=== PATIENT | female | born 1990 | race Caucasian/White ===

== ENCOUNTER → 2017-04-27 | Outpatient (CLI) | payer BC ==
[~2017-04-27] MED LIST: PNV11TAB PO
[2017-04-27 15:52] LABS: BASOPHILS % 0.2 % (0.0-2.0); EOSINOPHILS # 0.1 10^3/ul (0.0-0.5); EOSINOPHILS % 1.4 % (0.0-7.0); HEMOGLOBIN 11.5 g/dl (12.0-16.0); LYMPHOCYTES # 2.2 10^3/ul (0.8-2.9); LYMPHOCYTES % 24.3 % (15.0-51.0); MEAN CORPUSCULAR HEMOGLOBIN 30.5 pg (29.0-33.0); MEAN CORPUSCULAR HGB CONC 34.8 g/dl (32.0-37.0); MEAN CORPUSCULAR VOLUME 87.5 fl (82.0-101.0); MEAN PLATELET VOLUME 11.1 fl (7.4-10.4); MONOCYTE # 0.6 10^3/ul (0.3-0.9); MONOCYTES % 6.8 % (0.0-11.0); NEUTROPHILS % 66.9 % (39.0-77.0); PLATELET COUNT 279 10^3/UL (140-415); RED BLOOD COUNT 3.77 10^6/ul (4.20-5.40)
[2017-04-27 15:57] LABS: ADD UMIC NO; UR ASCORBIC ACID NEGATIVE (NEGATIVE); UR BILIRUBIN (Dip) NEGATIVE (NEGATIVE); UR BLOOD (Dip) NEGATIVE (NEGATIVE); UR CLARITY CLEAR (CLEAR); UR COLOR YELLOW (YELLOW); UR GLUCOSE (Dip) NEGATIVE (NEGATIVE); UR KETONES (Dip) NEGATIVE (NEGATIVE); UR LEUKOCYTE ESTERASE (Dip) NEGATIVE Leu/ul (NEGATIVE); UR NITRITE (Dip) NEGATIVE (NEGATIVE); UR SPECIFIC GRAVITY (Dip) 1.025 (1.003-1.030); UR TOTAL PROTEIN (Dip) NEGATIVE (NEGATIVE); UR UROBILINOGEN (Dip) NEGATIVE (NEGATIVE)
[2017-04-27 16:07] LABS: INR 0.92; PROTIME 12.4 Sec (12.2-14.2)
[2017-04-27 16:10] LABS: ALBUMIN 3.6 g/dl (3.3-4.9); ALBUMIN/GLOBULIN RATIO 0.94; BILIRUBIN,INDIRECT 0.2 mg/dl (0-1.1); BILIRUBIN,TOTAL 0.2 mg/dl (0.2-1.3); CALCIUM 8.7 mg/dl (8.4-10.2); CREATININE 0.66 mg/dl (0.44-1.00); POTASSIUM 4.2 mmol/L (3.5-5.1); TOTAL PROTEIN 7.4 g/dl (6.1-8.1)
== END | disposition home or self-care (01) ==
LOC: LAB 15:20
PROVIDERS: ATTEND Specialist
DX: Z01.812 Encounter for preprocedural laboratory examination (principal); O34.29 Maternal care due to uterine scar from other previous surgery
CPT/HCPCS: 80053; 81003; 85025; 85610; 85730; 86592; 86850; 86900; 86901

== ENCOUNTER 2017-04-29 05:25 | Inpatient (IN) | payer BC ==
[~2017-04-29] VITALS: Ht 165.1 cm; Wt 104.0 kg
[2017-04-29] MEDS ORDERED: LACTATED RINGER'S 1,000 ML IV SCH (06:12)
[2017-04-29 06:15] VITALS: Ht 165.1 cm; Wt 104.0 kg
[2017-04-29] MEDS ORDERED: CEFAZOLIN 2 GM/50 ML (PMX) 50 ML IV SCH ×2 (06:30→11:30)
[2017-04-29] MEDS ORDERED: CARBOPROST 250 MCG INJ IM PRN ×2 (06:30→11:30)
[2017-04-29] MEDS ORDERED: METHYLERGONOVINE 0.2 MG INJ IM PRN ×2 (06:30→11:30)
[2017-04-29] MEDS ORDERED: MISOPROSTOL 200 MCG TAB PR PRN ×2 (06:30→11:30)
[2017-04-29] MEDS ORDERED: OXYTOCIN 30 UNITS/LR 500 ML IV PRN ×2 (06:30→11:30)
[2017-04-29] MEDS ORDERED: OXYTOCIN 30 UNITS/LR 500 ML IV SCH (06:30)
--- NOTE | 2017-04-29 06:52 | PREOPHP ---
DATE OF ADMISSION: 04/29/2017 She is to be admitted tomorrow, 04/29/2017, for a repeat at term. HISTORY OF PRESENT ILLNESS: This is a 26-year-old female, 3, para 2, with an EDC of 05/06/2017, confirmed by early and serial ultrasounds done at the [facility] group, who is admitted for elective repeat section at 39 weeks' gestation. She has had a totally uncomplicated course. Her care started at 27 weeks on 02/05/2017. The procedure itself, which she is familiar with was, however, reviewed in the office in detail. The alternatives to it, the benefits, the risks, and possible complications like infection, hemorrhage and pelvic organ injury during the procedure, as well as postoperative complications were discussed at great length. She was allowed to ask questions, all her questions were answered to her satisfaction, and she signed the appropriate surgical informed consent. PAST MEDICAL HISTORY: The patient denies any medical problems including diabetes, hypertension, cardiac disease, liver disease, renal disease and neurological problems. ALLERGIES: NO KNOWN ALLERGIES. MEDICATIONS: She takes only vitamins on a regular basis. OBSTETRICAL HISTORY: This is this lady's 3rd , the 2 previous ones were delivered by section in 2007 and 2005. FAMILY HISTORY: Noncontributory. REVIEW OF SYSTEMS: A 12-point review of systems is noncontributory. PHYSICAL EXAMINATION: GENERAL: Well-developed and nourished, in no distress, alert, oriented x3 with a height 5 feet 5 inches and a weight of 232 pounds. VITAL SIGNS: Shows the temperature to be 98, blood pressure is 120/77, respirations are 16 per minute, the pulse is 80 per minute, regular. HEENT: Within normal limits. The pupils are PERRLA. NECK: Supple. The thyroid is not palpable. There is no lymphadenopathy. BREASTS: Show no masses or lumps. Nipples are normal. LUNGS: Clear to percussion and auscultation. HEART: Normal sinus rhythm without a murmur. ABDOMEN: Soft, obese. Uterus enlarged up to 36 cm above the pubic bone, single baby, longitudinal lie, cephalic presentation. heart is category 1. PELVIC: Normal external genitalia. Cervix is long and closed. Membranes are intact. EXTREMITIES: Within normal limits. NEUROLOGIC: Also normal. IMPRESSION: 1. Thirty-nine weeks' gestation. 2. Previous section x2. 3. Obesity. PLAN: The patient is to be delivered by repeat . Dictated By: PEEWEE DOWD/YOLANDA Conf#: [id number] DID#: [id number] MTDD
[2017-04-29] MEDS ORDERED: morphine SULFATE/PF (10 MG/10 ML) INJ ONE (07:40)
[2017-04-29] MEDS ORDERED: FENTAnyl 50 MCG/ML VIAL ONE (07:40)
[2017-04-29] MEDS ORDERED: PHENYLephrine (100 MCG/ML) 5ML SYG ONE ×2 (07:50→08:04)
[2017-04-29] MEDS ORDERED: ZOLPIDEM 5 MG TAB PO PRN (08:00)
[2017-04-29] MEDS ORDERED: NALOXONE (0.4 MG/ML) INJ IV PRN (08:00)
[2017-04-29] MEDS ORDERED: TRIMETHOBENZAMIDE 100 MG/ML VIAL IM PRN (08:00)
[2017-04-29] MEDS ORDERED: ONDANSETRON 4 MG INJ IV PRN (08:00)
[2017-04-29] MEDS ORDERED: DIPHENHYDRAMINE 50 MG INJ IV PRN (08:00)
[2017-04-29] MEDS ORDERED: DEXAMETHASONE 4 MG/ML 1 ML INJ ONE (08:03)
[2017-04-29] MEDS ORDERED: ONDANSETRON 4 MG INJ ONE (08:11)
--- NOTE | 2017-04-29 08:57 | SIPON ---
Date/Time of Note Date/Time of Note See dictated note DATE: 04/29/17 TIME: 08:54 Operative Report Preoperative Diagnosis 39 weeks gestation Previous X 2 Obesity. Postoperative Diagnosis Same. Operation/Procedure Performed Repeat . Surgeon Dr.Carlos Ines Cast MD human services assistant It Consultant: MD De Anesthesia: spinal Estimated blood loss: other Transfusion Required none Specimen None Grafts/Implants none Complications none PEEWEE CAST MD Apr 29, 2017 08:57
--- NOTE | 2017-04-29 09:29 | OPR ---
DATE OF OPERATION: 04/29/2017 PREOPERATIVE DIAGNOSES: 1. Thirty-nine weeks' gestation. 2. Previous section x2. 3. Obesity. POSTOPERATIVE DIAGNOSES: 1. Thirty-nine weeks' gestation. 2. Previous section x2. 3. Obesity. FINDINGS: Baby boy, Apgars scores of 8 and 9. OPERATION PERFORMED: Repeat low segment transverse section. SURGEON: Dr. Peewee Cast MD. MOBILE HOME INSTALLER: Dr. Zavala. ANESTHESIA: Spinal. ANESTHESIOLOGIST: Dr. Chirinos. ESTIMATED BLOOD LOSS: 800 mL. COMPLICATIONS: None. SPECIMENS: None. PROCEDURE AND FINDINGS: With the patient under spinal anesthesia, lying on the table in the dorsal recumbent position, tilted to the left side. The perineum was prepped with Betadine and then a Fole y catheter was inserted. The abdomen and upper thighs were prepped with ChloraPrep and after 3 kannan sotero, she was draped in the usual sterile fashion for this procedure. A Pfannenstiel incision was do ne and carried through all layers of the abdominal wall with ease. Once in the abdomen, the uterine segment was opened transversely and a living male child was delivered and immediately handed to the respiratory team appellate conferee who found the baby boy had Apgars scores of 8 at first minute and 9 at fiv e minutes. Sample cord blood was obtained. The placenta was delivered. The uterine cavity cleaned with a clean laparotomy pad. The incision in the uterus was closed with a double layer 0 PDS in a running fashion. Good hemostasis was obtained. Small bleeders were controlled with [id number] sutures of double 0 chromic catgut. Incidentally a 3 cm paraovarian cyst on the left side was foun d and removed. Hemostasis was intact. The rest of the pelvis was normal. The pelvis was cleaned w ith clean moist laparotomy pads. The incision of the uterus was checked for bleeders and there were none. It was covered with Interceed to avoid future adhesions. Then, the abdomen was closed in la yers starting with the peritoneum in the muscle with a continuous running stitch of #0 chromic catgu t. The fascia was closed with continuous stitch of #0 Vicryl. Subcutaneous tissues were approximat ed with continuous stitch of #0 plain catgut. Finally, the skin was brought together with a continu ous subcuticular 3-0 Monocryl. A sterile pressure dressing was applied and the patient was taken to recovery room with all vital signs stable. EBL was 800 mL of blood. Needle, sponge and instrument count at the end of the procedure was correct twice. Dictated By: PEEWEE DOWD/NTS Conf#: [id number] DID#: [id number] CC: ANU ZAVALA MD;*EndCC*
[2017-04-29] MEDS ORDERED: PNV11TAB PO (10:14)
[2017-04-29] MEDS: KETOROLAC 30 MG INJ IV PRN (10:20)
[2017-04-29] MEDS ORDERED: LANOLIN 7 GM TUBE TOP PRN (11:30)
[2017-04-29 12:01] VITALS: BP 130/63; PULSE 89; RESP 18
[2017-04-29] MEDS: IBUPROFEN 800 MG TAB PO SCH ×2 (14:00→22:00)
[2017-04-29] MEDS: LACTATED RINGER'S 1,000 ML IV SCH ×3 (15:51→23:51)
[2017-04-29 16:00] VITALS: BP 105/61; PULSE 87; RESP 16
[2017-04-29 20:00] VITALS: BP 120/62; PULSE 78; RESP 20
[2017-04-29] MEDS: CEFAZOLIN 2 GM/50 ML (PMX) 50 ML IVPB SCH (23:51)
[2017-04-30] MEDS: KETOROLAC 30 MG INJ IV PRN (02:53)
[2017-04-30 05:12] VITALS: BP 100/54; PULSE 78; RESP 20
[2017-04-30] MEDS: IBUPROFEN 800 MG TAB PO SCH ×3 (06:00→21:47)
--- NOTE | 2017-04-30 07:35 | PN ---
Date/Time of Note Date/Time of Note DATE: 04/30/17 TIME: 07:33 OB Subjective Subjective Subjective Doing well.Good pain control.Sitting up feeding the baby. OB Objective Objective Objective Afebrile.CBC pending Lochia normal. Abdomen soft. HEENT: WNL Lungs: Clear Abdomen: WNL Extremities: Normal Reflexes: Normal PEEWEE PAT MD Apr 30, 2017 07:35
[2017-04-30 08:20] VITALS: BP 107/64; PULSE 86; RESP 17
[2017-04-30] MEDS: CEFAZOLIN 2 GM/50 ML (PMX) 50 ML IVPB SCH (08:25)
[2017-04-30] MEDS: OXYCODONE/ACETAMINOPHEN (10/325) TAB PO PRN ×3 (10:09→23:56)
[2017-04-30 11:00] LABS: BASOPHILS % 0.3 % (0.0-2.0); EOSINOPHILS # 0.1 10^3/ul (0.0-0.5); EOSINOPHILS % 0.9 % (0.0-7.0); HEMATOCRIT 27.2 % (37.0-47.0); LYMPHOCYTES # 3.3 10^3/ul (0.8-2.9); LYMPHOCYTES % 28.8 % (15.0-51.0); MEAN CORPUSCULAR HEMOGLOBIN 29.9 pg (29.0-33.0); MEAN CORPUSCULAR HGB CONC 33.1 g/dl (32.0-37.0); MEAN CORPUSCULAR VOLUME 90.4 fl (82.0-101.0); MEAN PLATELET VOLUME 11.4 fl (7.4-10.4); MONOCYTE # 0.6 10^3/ul (0.3-0.9); MONOCYTES % 5.2 % (0.0-11.0); NEUTROPHIL # 7.4 10^3/ul (1.6-7.5); NEUTROPHILS % 64.4 % (39.0-77.0); PLATELET COUNT 202 10^3/UL (140-415); RED BLOOD COUNT 3.01 10^6/ul (4.20-5.40); RED CELL DISTRIBUTION WIDTH 12.1 % (11.5-14.5); WHITE BLOOD COUNT 11.4 10^3/ul (4.8-10.8)
[2017-04-30] MEDS: LACTATED RINGER'S 1,000 ML IV SCH (11:21)
[2017-04-30 16:49] VITALS: BP 114/57; PULSE 90; RESP 16
[2017-04-30] MEDS ORDERED: INFLUENZA VIRUS VACCINE 0.5 ML SYG IM* ONE (18:30)
[2017-04-30 19:45] VITALS: BP 112/63; PULSE 18; RESP 18
[2017-05-01 04:30] VITALS: BP 112/76; PULSE 90; RESP 18
[2017-05-01] MEDS: IBUPROFEN 800 MG TAB PO SCH ×3 (06:03→22:29)
--- NOTE | 2017-05-01 08:10 | PN ---
Date/Time of Note Date/Time of Note DATE: 05/01/17 TIME: 08:09 OB Subjective Subjective Subjective Doing well. Passing gases,no BM yet. OB Objective Objective Objective Afebrile. Abdomen soft.Dressing dry,will be removed today. HEENT: WNL Heart: Rhythm Normal Lungs: Clear Abdomen: WNL Extremities: Normal PEEWEE PAT MD May 01, 2017 08:10
[2017-05-01 08:15] VITALS: BP 122/62; PULSE 86; RESP 18
[2017-05-01] MEDS: OXYCODONE/ACETAMINOPHEN (10/325) TAB PO PRN ×3 (08:46→20:28)
[2017-05-01] MEDS ORDERED: MEASLES,MUMPS,RUBELLA VACCINE INJ SC* ONE (09:00)
[2017-05-01] MEDS: MAGNESIUM HYDROXIDE 30ML CUP PO SCH (11:15)
[2017-05-01 16:04] VITALS: BP_SYST 118; BP_SYST 120; BP_SYST 122; BP_DIAS 60; BP_DIAS 62; PULSE 86; PULSE 87; RESP 18; RESP 19
[2017-05-01 19:40] VITALS: BP 121/56; PULSE 91; RESP 18
[2017-05-02] MEDS: OXYCODONE/ACETAMINOPHEN (10/325) TAB PO PRN (00:33)
[2017-05-02 04:00] VITALS: BP 106/53; PULSE 83; RESP 18
[2017-05-02] MEDS: IBUPROFEN 800 MG TAB PO SCH (05:41)
[2017-05-02 08:25] VITALS: BP 118/58; PULSE 78; RESP 18
[2017-05-02] MEDS ORDERED: DIPHTH/TET/ACEL PERTUSS (ADULT) 0.5 ML VIAL IM* ONE (09:00)
[2017-05-02] MEDS: MAGNESIUM HYDROXIDE 30ML CUP PO SCH (10:12)
--- NOTE | 2017-05-02 10:14 | PD.PPDC ---
CONCRETE CRUSHER LOADER OPERATOR Discharge Instruction Diagnosis Final Diagnosis: Term .Previous X 2. Condition Patient Condition: Good Diet Diet: Resume Regular Diet Activity/Restrictions Activity: Normal Activity May Shower Restrictions: No Exercising No Lifting No Sexual Activity Nothing in the Vagina No Bunker Wound/Drain Care Instructions Wound/Drain Care Instructions: Keep clean and dry Follow-up Follow-up with Physician: 1, Week/Weeks Return to clinic for INSTRUMENT CHECKER Instructions: Fever greater than 101 Worsening abdominal pain Excessive Vaginal Bleeding Unable to tolerate diet OB Instructions: Breast Tenderness Depression Surgical Instructions: Incisional Drainage (Shower and wash hair as usual.) Incisional Redness PEEWEE PAT MD May 02, 2017 10:14
--- NOTE | 2017-05-02 15:29 | DS ---
DATE OF ADMISSION: 04/29/2017 DATE OF DISCHARGE: 05/02/2017 FINAL DIAGNOSES 1. Term intrauterine . 2. Previous section x2. 3. Repeat . SUMMARY: This is a 26-year-old female, 3, para 2, with 2 previous sections who was brought in electively at 39 weeks' gestation for repeat . She underwent this procedure un dia spinal anesthesia. There were no incidents or problems. Postoperatively, the mother and baby b oth did well. She is on her third day postop today, tolerating p.o. feeding well. She is passing g ases with no problem. Incision looked well with no sign of infection. She is discharged with writt en instructions on a regular diet. She was given a prescription for [place] 5/325, 40 tablets, to use 1 or 2 every 6 hours p.r.n. pain. She is to make an appointment for followup visit in the office i n 1 week. She is discharged in good condition. Dictated By: PEEWEE DOWD/YOLANDA Conf#: [id number] DID#: [id number]
== END 2017-05-02 13:04 | disposition home or self-care (01) | DRG 766 ==
LOC: EDBD → L-D 05:25 → EDUNIT# 07:30 → L-D 07:35 → PP1 11:30
PROVIDERS: ADMIT Specialist; ATTEND Specialist
PROC: 10D00Z1 Extraction of Products of Conception, Low, Open Approach (ICD-10-PCS; principal; 2017-04-29 07:30)
DX: O34.219 Maternal care for unspecified type scar from previous cesarean delivery (principal); E66.9 Obesity, unspecified; Z37.0 Single live birth; Z3A.39 39 weeks gestation of pregnancy; O99.214 Obesity complicating childbirth; Z68.38 Body mass index [BMI] 38.0-38.9, adult
CPT/HCPCS: 85025; 86592; 86900; 86901; 87340; 90686; 90715; 99464; J0690; J1100; J1200; J1885; J2274; J2370; J2405; J2590; J3010; J7120